=== PATIENT | female | born 1995 | race Caucasian/White ===

== ENCOUNTER 2020-07-27 03:58 | Inpatient (IN) ==
[2020-07-27] MEDS ORDERED: Ondansetron 4 MG/2 ML VIAL IVP PRN ×2 (04:01→10:34)
[2020-07-27] MEDS ORDERED: Lidocaine 1% 20 ML MDV INFILT PRN (04:01)
[2020-07-27] MEDS ORDERED: *HR* FentaNYL (PF) 100 MCG/2 ML VIAL IVP PRN (04:01)
[2020-07-27] MEDS ORDERED: Naloxone 0.4 MG/ML INJ IVP PRN ×2 (04:01→10:34)
[2020-07-27] MEDS ORDERED: Metoclopramide 10 MG/2 ML VIAL IVP PRN (04:01)
[2020-07-27] MEDS ORDERED: Famotidine 20 MG/2 ML VIAL IVP PRN (04:01)
[2020-07-27] MEDS ORDERED: miSOPROStoL 25 MCG TABLET PO PRN (04:01)
[2020-07-27] MEDS ORDERED: Ringers Solution, Lactated 1,000 ML IVC SCH (04:15)
[2020-07-27] MEDS ORDERED: Oxytocin 20 units/ LR 1000 mL 20 UNIT/1,000 ML BAG IVC SCH (04:15)
[2020-07-27] MEDS ORDERED: FLU Vac QV 20-21 (6Month+)/PF 0.5 ML SYRINGE IM ONE (04:24)
[2020-07-27 04:41] LABS: Basophils # 0.1 K/mcL (0.0-0.2); Basophils % 0.5 %; Eosinophils # 0.2 K/mcL (0.0-0.6); Eosinophils % 1.8 %; Hematocrit 40.8 % (35.3-44.9); Hemoglobin 13.3 g/dL (11.5-15.4); Immature Granulocytes % 1.3 % (0-4); Lymphocytes # 2.3 K/mcL (0.6-4.6); Lymphocytes % 19.9 %; Mean Corpuscular HGB Conc 32.6 g/dL (31.6-35.5); Mean Corpuscular Hemoglobin 29.9 pg (28.0-33.3); Mean Corpuscular Volume 91.7 fL (83.0-100.0); Mean Platelet Volume 11.8 fL (9.4-12.4); Monocytes # 0.6 K/mcL (0.0-1.3); Monocytes % 4.8 %; Neutrophils # 8.4 K/mcL (1.6-8.9); Platelet Count 157 K/mcL (140-400); Red Blood Count 4.45 M/mcL (3.82-4.97); Red Cell Distribution Width 13.2 % (11.5-14.5); Segmented Neutrophils % 71.7 %; White Blood Count 11.7 K/mcL (4.3-11.1)
[2020-07-27 04:56] LABS: Amphetamine Screen,Urine Negative ng/mL (Cutoff=1000); Barbiturate Screen,Urine Negative ng/mL (Cutoff=200); Benzodiazepines Screen,Urine Negative ng/mL (Cutoff=200); Cannabinoid Screen,Urine Negative ng/mL (Cutoff = 50); Cocaine Screen,Urine Negative ng/mL (Cutoff= 300); Opiate Screen,Urine Negative ng/mL (Cutoff=300); Phencyclidine Screen,Urine Negative ng/mL (Cutoff=25)
[2020-07-27] MEDS ORDERED: Bupivacaine-MPF 0.25% 10 ML VIAL EP ONE (10:34)
[2020-07-27] MEDS ORDERED: EPHEDrine 50 MG/ML VIAL IVP PRN (10:34)
[2020-07-27] MEDS ORDERED: Ropivacaine/PF 0.2% 20 ML VIAL EP ONE (10:34)
[2020-07-27] MEDS ORDERED: Epidural Premix (fent/bupiv) 110 ML EP ONE (10:40)
[2020-07-27] MEDS ORDERED: Ropivacaine/PF 0.2% 20 ML VIAL ONE (10:41)
[2020-07-27] MEDS: Epidural Premix (fent/bupiv) 110 ML EP SCH ×2 (11:00→17:19)
[2020-07-28] MEDS ORDERED: Acetaminophen 325 MG TABLET PO PRN (00:28)
[2020-07-28] MEDS ORDERED: Oxytocin 20 units/ LR 1000 mL 20 UNIT/1,000 ML BAG IVC SCH (00:28)
[2020-07-28] MEDS ORDERED: Benzocaine/Menthol 56 GM AEROSOL SPRAY TP PRN (00:28)
[2020-07-28] MEDS ORDERED: Measles/Mumps/Rubella Vacc 0.5 ML VIAL SQ PRN (00:28)
[2020-07-28] MEDS ORDERED: Rho Immune Globulin 1,500 UNIT SYRINGE IM PRN (00:28)
[2020-07-28] MEDS ORDERED: Oxytocin 20 units/ LR 1000 mL 20 UNIT/1,000 ML BAG IVC ONE (00:28)
[2020-07-28] MEDS: Ibuprofen 600 MG TABLET PO PRN ×3 (01:23→17:23)
[2020-07-28 07:19] LABS: Basophils # 0.1 K/mcL (0.0-0.2); Basophils % 0.4 %; Eosinophils % 0.2 %; Hematocrit 32.5 % (35.3-44.9); Hemoglobin 10.7 g/dL (11.5-15.4); Immature Granulocytes % 1.7 % (0-4); Lymphocytes # 1.6 K/mcL (0.6-4.6); Mean Corpuscular HGB Conc 32.9 g/dL (31.6-35.5); Mean Corpuscular Hemoglobin 30.7 pg (28.0-33.3); Mean Corpuscular Volume 93.4 fL (83.0-100.0); Mean Platelet Volume 11.8 fL (9.4-12.4); Monocytes % 5.6 %; Neutrophils # 14.4 K/mcL (1.6-8.9); Platelet Count 136 K/mcL (140-400); Red Blood Count 3.48 M/mcL (3.82-4.97); Red Cell Distribution Width 13.2 % (11.5-14.5); Segmented Neutrophils % 83.1 %; White Blood Count 17.4 K/mcL (4.3-11.1)
[2020-07-28] MEDS: Prenatal Vit/FA 1 EACH TABLET PO SCH (08:16)
[2020-07-29] MEDS: Prenatal Vit/FA 1 EACH TABLET PO SCH (07:44)
[2020-07-29] MEDS: Ibuprofen 600 MG TABLET PO PRN (07:46)
[2020-07-29 08:02] VITALS: BP 125/75
== END 2020-07-29 15:06 | disposition home or self-care (01) | DRG 807 ==
LOC: 1NENULAB 03:58 → 1NENUOBS 07-28 00:45
PROVIDERS: ADMIT Obstetrics & Gynecology; ATTEND Obstetrics & Gynecology